=== PATIENT | female | born 1985 | race Hispanic/Latino ===

== ENCOUNTER 2019-04-03 09:37 | Emergency (ER) | payer OTHER | END 2019-04-03 10:23 | disposition home or self-care (01) | LOC: EDH 09:37 | DX: J11.1 Influenza due to unidentified influenza virus with other respiratory manifestations (principal); Z98.890 Other specified postprocedural states ==

== ENCOUNTER 2019-09-05 17:31 | Emergency (ER) | payer OTHER, SELFPAY ==
[2019-09-05] MEDS ORDERED: ACETAMINOPHEN EXTRA STRENGTH 500 MG TABLET ONE (19:29)
== END 2019-09-05 22:58 | disposition home or self-care (01) ==
LOC: EDH 17:31
DX: U07.1 COVID-19 (principal); B34.9 Viral infection, unspecified
CPT/HCPCS: 36415; 71045; 80053; 81001; 82550; 83605; 83874; 84145; 84484; 85025; 85610; 85730; 87040 ×2; 87088; 87804 ×2; 93005; 99285; U0003

== ENCOUNTER 2023-04-01 11:35 | Emergency (ER) | payer OTHER ==
[~2023-04-01] VITALS: Ht 152.4 cm; Wt 53.1 kg
[2023-04-01 12:42] LABS: SARS-CoV-2, RNA, NAAT NEGATIVE SARS CoV-2 (NEGATIVE)
[2023-04-01 12:48] LABS: INFLUENZA TYPE A Negative For Type A (NEGATIVE); INFLUENZA TYPE B Negative For Type B (NEGATIVE)
[2023-04-01] MEDS ORDERED: DEXAMETHASONE SOD PHOSPHATE 4 MG/ML 1ML VIAL IM ONE (16:00)
[2023-04-01] MEDS ORDERED: GUAIFENESIN/DEXTROMETHORPHAN 1 EACH TAB.SR.12H PO ONE (16:00)
[2023-04-01] MEDS ORDERED: IPRATROPIUM/ALBUTEROL SULFATE 3 ML SOLUTION IH ONE (16:00)
[2023-04-01 16:15] VITALS: PULSE 86; RESP 18
[2023-04-01] MEDS ORDERED: AZIT250T PO (17:19)
[2023-04-01] MEDS ORDERED: ALBU18HF7 IH (17:19)
[2023-04-01] MEDS ORDERED: FLUT16H NASAL (17:19)
[2023-04-01 17:33] VITALS: BP 128/70; PULSE 82; RESP 18; O2SAT 100
== END 2023-04-01 17:41 | disposition home or self-care (01) ==
LOC: EDH 11:35
DX: J20.9 Acute bronchitis, unspecified (principal); E11.9 Type 2 diabetes mellitus without complications; Z20.822 Contact with and (suspected) exposure to COVID-19; Z79.899 Other long term (current) drug therapy
CPT/HCPCS: 99285; 71045; 87635; 87804 ×2; 81025; 96372; 93005; 94640; J1100